=== PATIENT | female | born 1995 | race Caucasian/White ===

== ENCOUNTER 2019-08-11 08:18 | Emergency (ER) | payer OTHER ==
[2019-08-11 08:42] VITALS: BP 123/68
[2019-08-11 09:15] LABS: Influenza A Molecular NEGATIVE (Negative); Influenza B Molecular NEGATIVE (Negative)
--- NOTE | 2019-08-11 10:10 | UC ---
FLU HPI - HPI Summary HPI Summary: ONSET LAST NIGHT OF SORE THROAT, COUGH, NAUSEA/VOMITING, BODY ACHES AND FATIGUE. NO DOCUMENTED FEVER. NO FLU SHOT THIS SEASON. - History of Current Complaint Chief Complaint: UCGeneralIllness Stated Complaint: ABDOMINAL PAIN, VOMITING Time Seen by Provider: 08/11/19 09:57 Hx Obtained From: Patient, Family/Telephone Interviewer - Hx Last Menstrual Period: last month Onset/Duration: Gradual Onset, Lasting Hours, Still Present Severity Currently: Moderate Severity Initially: Moderate Pain Intensity: 8 Pain Scale Used: 0-10 Numeric Associated Signs & Symptoms: Positive: Myalgia, Cough, Sore Throat, Nasal Congestion, Headache, Vomiting - Allergy/Home Medications Allergies/Adverse Reactions: Allergies Allergy/AdvReac Type Severity Reaction Status Date / Time morphine Allergy Anaphylatic Verified 08/11/19 08:41 Shock PMH/Surg Hx/FS Hx/Imm Hx Previously Healthy: Yes - Surgical History Surgical History: None Surgery Procedure, Year, and Place: denies - Family History Known Family History: Positive: Renal Disease - aunt with kidneys, Other - NONCONTRIBUTORY Negative: Hypertension, Diabetes - Social History Alcohol Use: Occasionally Substance Use Type: None Smoking Status (MU): Heavy Every Day Tobacco Smoker Type: Cigarettes Amount Used/How Often: 5-10 cig/day Household Exposure Type: Cigarettes - Immunization History Most Recent Influenza Vaccination: NOT THIS SEASON Most Recent Tetanus Shot: 02/02/16 Most Recent Pneumonia Vaccination: none Review of Systems All Other Systems Reviewed And Are Negative: Yes Constitutional: Positive: Fatigue ENT: Positive: Sore Throat, Nasal Discharge Respiratory: Positive: Cough Cardiovascular: Positive: Negative Gastrointestinal: Positive: Vomiting, Nausea Musculoskeletal: Positive: Myalgia Neurological: Positive: Headache Physical Exam Triage Information Reviewed: Yes Appearance: No Pain Distress, Well-Nourished, Ill-Appearing - SEEMS FATIGUED Vital Signs: Initial Vital Signs Temp 99.6 F 08/11/19 08:37 Pulse 99 08/11/19 08:37 Resp 18 08/11/19 08:37 BP 123/68 08/11/19 08:37 Pulse Ox 99 08/11/19 08:37 Laboratory Tests 08/11/19 08/11/19 08/11/19 08:51 08:53 09:03 POC Urine Color Light yellow POC Urine Clarity Clear POC Urine pH 7.0 POC Ur Specif [place] 1.010 POC Urine Protein Negative POC Ur Glucose (UA) Negative POC Urine Ketones Negative POC Urine Blood Trace-intact POC Urine Nitrite Negative POC Urine Bilirubin Negative POC Urine Urobilinogen 0.2 POC U Leukocyte Esteras Negative POC Ur Test Negative Influenza A (Rapid) Negative Influenza B (Rapid) Negative Vital Signs Reviewed: Yes Eyes: Positive: Conjunctiva Clear ENT: Positive: Hearing grossly normal, Pharynx normal, TMs normal Neck: Positive: Supple, Nontender, No Lymphadenopathy Respiratory Exam: Normal Cardiovascular Exam: Normal Abdomen Description: Positive: Soft, Other: - MILD TENDERNESS DIFFUSELY. Negative: Distended, Guarding Bowel Sounds: Positive: Present Musculoskeletal: Positive: No Edema Neurological: Positive: Alert Psychological: Positive: Normal Response To Family, Age Appropriate Behavior Skin: Negative: Rashes Flu Course/Dx - Course Course Of Treatment: FLU SWAB NEGATIVE. URINE UNREMARKABLE. PATIENT LIKELY WITH A VIRALLY MEDIATED FLULIKE ILLNESS. ADVISED CONSERVATIVE MANAGEMENT WITH REST, HYDRATION, OTC MEDICATIONS NEEDED. WILL GIVE ZOFRAN FOR NAUSEA IF NEEDED. FOLLOW-UP IF NOT IMPROVING EXPECTED. - Differential Dx/Diagnosis Provider Diagnosis: Influenza-like illness Discharge ED - Sign-Out/Discharge Documenting (check all that apply): Patient Departure All imaging exams completed and their final reports reviewed: No Studies - Discharge Plan Condition: Stable Disposition: HOME Prescriptions: Ondansetron ODT TAB* [Zofran Odt TAB*] 4 mg PO Q6H PRN #20 tab.odt PRN Reason: Nausea/Vomiting Patient Education Materials: Viral Syndrome (ED) Forms: *Work Release Referrals: [facility] [Outside] - If Needed Additional Instructions: FLU SWAB NEGATIVE. YOUR SYMPTOMS ARE LIKELY VIRALLY MEDIATED AND SHOULD RESOLVE ON THEIR OWN WITH TIME. NO INDICATION FOR ANTIBIOTICS AT PRESENT. REST, HYDRATE , OTC MEDS NEEDED. WILL TREAT WITHZOFRAN TO HELP WITH NAUSEA. SEEK FOLLOW-UP IF YOU ARE NOT IMPROVING OVER THE NEXT 1-2 WEEKS. CALL THE NUMBER BELOW FOR ASSISTANCE IN ESTABLISHING WITH A PCP An additional resource available to assist in finding the appropriate physician for your health care needs is the [facility] ([facility]leana Fernandez). You may contact them by calling [phone]. - Billing Disposition and Condition Condition: STABLE Disposition: Home
== END 2019-08-11 10:23 | disposition home or self-care (01) ==
LOC: UCEAST 08:18
DX: J02.9 Acute pharyngitis, unspecified (principal); R11.2 Nausea with vomiting, unspecified; R09.89 Other specified symptoms and signs involving the circulatory and respiratory systems; R51 Headache; M79.10 Myalgia, unspecified site; R53.83 Other fatigue; Z88.5 Allergy status to narcotic agent; F17.210 Nicotine dependence, cigarettes, uncomplicated
CPT/HCPCS: 81003; 84702; 99212; G0463

== ENCOUNTER 2019-09-02 12:33 | Emergency (ER) | payer OTHER ==
[2019-09-02 12:55] LABS: Influenza B Molecular POSITIVE (Negative)
[2019-09-02 13:46] VITALS: BP 135/87
--- NOTE | 2019-09-02 14:49 | ED ---
Influenza-Like Illness - HPI Summary HPI Summary: This patient is a 23-year-old female presenting to the ED with cough and congestion and a fever which just started this morning. Denies any nausea or vomiting or diarrhea. She does state her daughter was diagnosed with the flu although was not tested. Patient states her daughter continues to have cough and congestion and fevers past 7 days. She states her symptoms have only been for the past 3 days, however fever developed this morning. She is also endorsing body aches and headache. She has been taking ibuprofen only at home with minimal relief. She did not receive the flu vaccine this year. Cough is without production. Patient takes no medications. Allergic to morphine. PMH unremarkable. - History of Current Complaint Chief Complaint: EDFluSymptoms Time Seen by Provider: 09/02/19 13:18 Hx Obtained From: Patient Onset/Duration: Sudden Onset Severity: Moderate Associated Signs & Symptoms: Fever, T Max - 102, F/C, Cough, Nasal Congestion Related Hx: Possible Flu/Infectious Exposure - Risk Factors Influenza Risk Factors: Negative - Allergy/Home Medications Allergies/Adverse Reactions: Allergies Allergy/AdvReac Type Severity Reaction Status Date / Time bee venom protein (honey bee) Allergy Anaphylatic Verified 08/20/19 20:22 Shock morphine Allergy Anaphylatic Verified 08/20/19 20:22 Shock PMH/Surg Hx/FS Hx/Imm Hx Previously Healthy: Yes Endocrine/Hematology History: Denies: Hx Diabetes, Hx Thyroid Disease Cardiovascular History: Denies: Hx Hypertension Respiratory History: Denies: Hx Asthma, Hx Chronic Obstructive Pulmonary Disease (COPD) GI History: Denies: Hx Ulcer Psychiatric History: Denies: Hx of Violent Episodes Against Others - Surgical History Surgery Procedure, Year, and Place: denies - Immunization History Hx Pertussis Vaccination: No Immunizations Up to Date: Yes Infectious Disease History: No Infectious Disease History: Denies: Hx Hepatitis, Hx Human Immunodeficiency Virus (HIV), History Other Infectious Disease, Traveled Outside the [place] in Last 30 Days - Family History Known Family History: Positive: Renal Disease - aunt with kidneys, Other - NONCONTRIBUTORY Negative: Hypertension, Diabetes - Social History Occupation: Employed Full-time Lives: With Family Alcohol Use: Occasionally Hx Substance Use: No Substance Use Type: Reports: None Smoking Status (MU): Light Every Day Tobacco Smoker Type: Cigarettes Amount Used/How Often: 5-10 cig/day Review of Systems Positive: Fever, Chills, Fatigue, Skin Diaphoresis Negative: Palpitations, Chest Pain Positive: Cough. Negative: Shortness Of Breath Negative: Abdominal Pain, Vomiting, Diarrhea, Nausea Positive: see HPI Positive: Myalgia Skin: Negative All Other Systems Reviewed And Are Negative: Yes Physical Exam Triage Information Reviewed: Yes Vital Signs On Initial Exam: Initial Vitals Temp Pulse Resp BP Pulse Ox 97.8 F 111 18 123/88 98 09/02/19 12:35 09/02/19 12:35 09/02/19 12:35 09/02/19 12:35 09/02/19 12:35 Vital Signs Reviewed: Yes Appearance: Positive: Well-Appearing, Well-Nourished Skin: Positive: Warm, Skin Color Reflects Adequate Perfusion Head/Face: Positive: Normal Head/Face Inspection Eyes: Positive: EOMI, FILOMENA, Conjunctiva Clear Neck: Positive: Supple, No Lymphadenopathy Respiratory/Lung Sounds: Positive: Clear to Auscultation, Breath Sounds Present Cardiovascular: Positive: RRR, Pulses are Symmetrical in both Upper and Lower Extremities Musculoskeletal: Positive: Normal, Strength/ROM Intact Neurological: Positive: Speech Normal Psychiatric: Positive: Affect/Mood Appropriate AVPU Assessment: Alert Procedures - Sedation Patient Received Moderate/Deep Sedation with Procedure: No Diagnostics - Vital Signs Vital Signs Temp Pulse Resp BP Pulse Ox 09/02/19 13:45 97.5 F 103 18 135/87 96 09/02/19 12:35 97.8 F 111 18 123/88 98 - Laboratory Lab Results: Lab Results 09/02/19 Range/Units 12:18 Influenza A (Rapid) Not Reportable Influenza B (Rapid) Positive H (Negative) Lab Statement: Any lab studies that have been ordered have been reviewed, and results considered in the medical decision making process. Flu Symptom Course/Dx - Course Course Of Treatment: Patient is evaluated for flulike symptoms. Vital signs are stable. Lungs CTA. RRR. Patient appears well, nondiaphoretic and nontoxic appearing. She states she continues to eat and drink okay. She denies any weakness. She is tested for the flu and is influenza B-positive. This was discussed with the patient. Treatment options were also discussed. Encouraged Tylenol and ibuprofen intermittently and she is taken out of school. I recommended not taking the Tamiflu at this time she has had symptoms for over 2 days. - Diagnoses Differential Diagnosis/HQI/PQRI: Positive: Bronchitis, Influenza, Upper Respiratory Infection Provider Diagnoses: Influenza B Discharge ED - Sign-Out/Discharge Documenting (check all that apply): Patient Departure - Discharge Plan Condition: Stable Disposition: HOME Patient Education Materials: Influenza (ED) Forms: *Work Release Referrals: No Primary Care Phys,NOPCP [Primary Care Provider] - Additional Instructions: Humidifier in the home may help Tylenol 650mg four times daily (OR dayquil/nyquil) Ibuprofen 600mg four times daily Drink plenty of fluids Rest out of work x 5 days - Billing Disposition and Condition Condition: STABLE Disposition: Home - Attestation Statements Provider Attestation: I was available for consult. This patient was seen by the CONSUELO. The patient was not presented to, seen by, or examined by me. Phoenix Moody MD
== END 2019-09-02 13:45 | disposition home or self-care (01) ==
LOC: ED 12:33
DX: J10.1 Influenza due to other identified influenza virus with other respiratory manifestations (principal); R50.9 Fever, unspecified; Z88.6 Allergy status to analgesic agent; F17.210 Nicotine dependence, cigarettes, uncomplicated
CPT/HCPCS: 99281

== ENCOUNTER 2020-11-04 11:45 | Inpatient (IN) ==
[2020-11-04] MEDS ORDERED: Buffered Lidocaine 1% SYRIN 1 ml INTRADERM ONE (12:36)
[2020-11-04] MEDS ORDERED: Lactated Ringers 1000 ml BAG 1,000 ML IV ONE (12:36)
[2020-11-04] MEDS ORDERED: Oxytocin in LR 20 UNITS/1,000 ML BAG IVPB SCH (13:00)
[2020-11-04] MEDS ORDERED: Lactated Ringers 1000 ml BAG 1,000 ML IV SCH ×2 (13:00→21:00)
[2020-11-04 16:01] LABS: Urine Benzodiazepine Screen None Detected (None Detect); Urine Cannabinoids Screen None Detected (None Detect); Urine Opiates Screen None Detected (None Detect)
[2020-11-04] MEDS ORDERED: Witch Hazel PAD JAR TOPICAL PRN (20:59)
[2020-11-04] MEDS ORDERED: Dibucaine 1% OINT 28.35 GM TUBE PR PRN (20:59)
[2020-11-05 07:42] LABS: ABS Eosinophils 0.1 10^3/ul (0-0.6); ABS Lymphocytes 3.4 10^3/ul (1.0-4.8); ABS Monocytes 1.5 10^3/ul (0-0.8); ABS Neutrophils 14.8 10^3/ul (1.5-7.7); Eosinophil % 0.3 %; Hematocrit 30 % (35-47); Hemoglobin 10.3 g/dL (12.0-16.0); Lymphocyte % 17.2 %; Mean Corpuscular HGB Conc 35 g/dL (31-36); Mean Corpuscular Hemoglobin 32 pg (27-31); Mean Corpuscular Volume 91 fL (80-97); Mean Platelet Volume 10.1 fL (7.4-10.4); Platelet Count 220 10^3/uL (150-450); Red Blood Count 3.24 10^6 /uL (3.70-4.87); Red Cell Distribution Width 13 % (10-15); White Blood Count 19.8 10^3/uL (3.5-10.8)
[2020-11-05 20:26] VITALS: BP 116/73
== END 2020-11-05 22:00 | disposition home or self-care (01) | DRG 560 ==
LOC: MCHOBOUT 11:45 → MCHOB 12:38
PROVIDERS: ADMIT Obstetrics & Gynecology; ATTEND Obstetrics & Gynecology